=== PATIENT | female | born 1935 | race Caucasian/White ===

== ENCOUNTER 2016-06-05 19:46 | Inpatient (IN) | payer OTHER ==
[~2016-06-05] VITALS: Ht 157.5 cm; Wt 103.8 kg
[2016-06-05 19:49] VITALS: BP 145/85; PULSE 83; RESP 40; TEMP 100; O2SAT 99
[2016-06-05 19:52] VITALS: O2SAT 98
[2016-06-05] MEDS ORDERED: SODIUM CHLORIDE 0.9% FLUSH 5 ML FLUSH IVF PRN (20:00)
[2016-06-05 20:10] VITALS: BP 176/122; PULSE 102; RESP 38; TEMP 101; O2SAT 98
--- NOTE | 2016-06-05 20:14 | PD ---
HPI Chief Complaint: Respiratory Distress Time Seen by Provider: 19:57 Travel History International Travel<30 days: No Contact w/Intl Traveler<30days: No Traveled to known affect area: No History of Present Illness HPI Patient is an 81-year-old female with history of COPD, DM, CHF, HTN, HYPERLIPIDEMIA, who presents to emergency room from home with complaints of sob. Patient reports that for the past 2 days, she has been feeling increasingly sob. Reports that she has had increased productive cough with thick yellow sputum. Reports that she is here visiting from [place], reports that her sister is sick with similar symptoms. Reports that she has not been having fever/chills, reports "just a productive cough." Patient denies chest pain. Reports that she did get the flu vaccine this year. As per [facility], pt had pulse ox at room air around 84%, she is not on home O2. Patient was placed on CPAP by EMS. Patient was given IV Lasix 100mg by [facility] and was also given 1 neb treatment. Patient arrives to ER on CPAP, pt reports "I am feeling better already." PFSH Past Medical History Cardiovascular Problems: Yes (htn, chf ) Congestive Heart Failure: Yes COPD: Yes Diabetes: Yes Patient Takes Glucophage: No Diminished Hearing: No Hypertension: Yes Respiratory: Yes (copd) Tetanus Vaccination: Unknown Influenza Vaccination: Yes Social History Alcohol Use: No Tobacco Use: No Substance Use: No Allergies-Medications (Allergen,Severity, Reaction): Coded Allergies: No Known Allergies (Unverified , 06/05/16) Reported Meds & Prescriptions Reported Meds & Active Scripts Active Reported Clobetasol Topical (Clobetasol Propionate) 0.05% Cream 1 Applic TOPICAL BID Terazosin (Terazosin HCl) 2 Mg Cap 2 Mg PO HS Metformin (Metformin HCl) 500 Mg Tab 500 Mg PO DAILY With a meal Magnesium Oxide 500 Mg Tab 835 Mg PO DAILY Amlodipine (Amlodipine Besylate) 5 Mg Tab 5 Mg PO DAILY Januvia (Sitagliptin Phosphate) 100 Mg Tab 100 Mg PO DAILY Aspirin 81 (Aspirin) 81 Mg Tabdr 81 Mg PO DAILY Perindopril (Perindopril Erbumine) 8 Mg Tab 8 Mg PO DAILY Protonix (Pantoprazole Sodium) 40 Mg Tab 40 Mg PO DAILY Levothyroxine (Levothyroxine Sodium) 25 Mcg Tab 0.15 Mg PO DAILY Furosemide 40 Mg Tab 40 Mg PO DAILY Review of Systems General / Constitutional: No: Fever Eyes: No: Visual changes HENT: No: Headaches Cardiovascular: No: Chest Pain or Discomfort Respiratory: Positive: Cough, Shortness of Breath Gastrointestinal: No: Nausea, Vomiting, Diarrhea, Abdominal Pain Genitourinary: No: Dysuria Musculoskeletal: No: Pain Skin: No Rash Neurologic: No: Weakness Psychiatric: No: Depression Endocrine: No: Polydipsia Hematologic/Lymphatic: No: Easy Bruising Physical Exam Narrative GENERAL: moderate distress SKIN: Warm and dry. HEAD: Atraumatic. Normocephalic. EYES: Pupils equal and round. No scleral icterus. No injection or drainage. ENT: No nasal bleeding or discharge. Mucous membranes pink and moist. NECK: Trachea midline. No JVD. CARDIOVASCULAR: tachycardic. No murmur appreciated. RESPIRATORY: diffuse rales, pt with increased accessory muscle use. Breath sounds equal bilaterally. GASTROINTESTINAL: Abdomen soft, non-tender, nondistended. Hepatic and splenic margins not palpable. MUSCULOSKELETAL: No obvious deformities. No clubbing. No cyanosis. +3 pitting edema b/l. NEUROLOGICAL: Awake and alert. No obvious cranial nerve deficits. Motor grossly within normal limits. Normal speech. PSYCHIATRIC: Appropriate mood and affect; insight and judgment normal. Data Data Last Documented VS Vital Signs Date Time Temp Pulse Resp B/P Pulse Ox O2 Delivery O2 Flow Rate FiO2 06/05/16 21:05 100.5 99 28 167/79 96 BiPAP 40 Orders Complete Blood Count With Diff (06/05/16 19:58) Comprehensive Metabolic Panel (06/05/16 19:58) B-Type Natriuretic Peptide (06/05/16 19:58) Act Partial Throm Time (Ptt) (06/05/16 19:58) Prothrombin Time / Inr (Pt) (06/05/16 19:58) Magnesium (Mg) (06/05/16 19:58) Ckmb (Isoenzyme) Profile (06/05/16 19:58) Troponin I (06/05/16 19:58) Arterial Blood Gas (Abg) (06/05/16 19:58) Urinalysis - C+S If Indicated (06/05/16 19:58) Influenzae A/B Antigen (06/05/16 19:58) Blood Culture (06/05/16 19:58) Iv Access Insert/Monitor (06/05/16 19:58) Ecg Monitoring (06/05/16 19:58) Oximetry (06/05/16 19:58) Oxygen Administration (06/05/16 19:58) Chest, Single Ap (06/05/16 19:58) Urinary Catheter Insert/Apply (06/05/16 19:58) Sodium Chloride 0.9% Flush (Ns Flush) (06/05/16 20:00) Resp Bipap / Cpap Non Invas Vt (06/05/16 19:58) Lactic Acid Sepsis Protocol (06/05/16 19:58) Nitroglycerin 2% Oint (Nitroglycerin 2% (06/05/16 20:15) CKMB (06/05/16 20:00) CKMB% (06/05/16 20:00) Vancomycin Inj (Vancomycin Inj) (06/05/16 20:50) Piperacil-Tazo 4.5 Gm Premix (Zosyn 4.5 (06/05/16 20:50) Admit Order (Ed Use Only) (06/05/16 21:20) Electrocardiogram (06/05/16 19:54) Labs Laboratory Tests Test 06/05/16 20:00 White Blood Count 10.5 TH/MM3 Red Blood Count 4.04 MIL/MM3 Hemoglobin 11.3 GM/DL Hematocrit 34.0 % Mean Corpuscular Volume 84.2 FL Mean Corpuscular Hemoglobin 27.9 PG Mean Corpuscular Hemoglobin 33.1 % Concent Red Cell Distribution Width 15.3 % Platelet Count 177 TH/MM3 Mean Platelet Volume 9.9 FL Neutrophils (%) (Auto) 83.9 % Lymphocytes (%) (Auto) 8.0 % Monocytes (%) (Auto) 7.6 % Eosinophils (%) (Auto) 0.1 % Basophils (%) (Auto) 0.4 % Neutrophils # (Auto) 8.8 TH/MM3 Lymphocytes # (Auto) 0.8 TH/MM3 Monocytes # (Auto) 0.8 TH/MM3 Eosinophils # (Auto) 0.0 TH/MM3 Basophils # (Auto) 0.0 TH/MM3 CBC Comment DIFF FINAL Differential Comment Prothrombin Time 12.1 SEC Prothromb Time International 1.1 RATIO Ratio Activated Partial 29.2 SEC Thromboplast Time Urine Color YELLOW Urine Turbidity HAZY Urine pH 5.0 Urine Specific [place] 1.012 Urine Protein 30 mg/dL Urine Glucose (UA) NEG mg/dL Urine Ketones NEG mg/dL Urine Occult Blood TRACE Urine Nitrite NEG Urine Bilirubin NEG Urine Urobilinogen LESS THAN 2.0 MG/DL Urine Leukocyte Esterase NEG Urine RBC 1 /hpf Urine WBC 3 /hpf Urine Amorphous Sediment RARE Urine Bacteria OCC /hpf Urine Mucus FEW /lpf Microscopic Urinalysis Comment CULT NOT INDICATED Sodium Level 138 MEQ/L Potassium Level 4.2 MEQ/L Chloride Level 104 MEQ/L Carbon Dioxide Level 24.4 MEQ/L Anion Gap 10 MEQ/L Blood Urea Nitrogen 32 MG/DL Creatinine 1.46 MG/DL Estimat Glomerular Filtration 34 ML/MIN Rate Random Glucose 283 MG/DL Lactic Acid Level 2.6 mmol/L Calcium Level 7.8 MG/DL Magnesium Level 1.7 MG/DL Total Bilirubin 0.5 MG/DL Aspartate Amino Transf 19 U/L (AST/SGOT) Alanine Aminotransferase 30 U/L (ALT/SGPT) Alkaline Phosphatase 94 U/L Total Creatine Kinase 340 U/L Creatine Kinase MB 2.5 NG/ML Creatine Kinase MB % 0.7 % Troponin I 0.03 NG/ML B-Type Natriuretic Peptide 694 PG/ML Total Protein 7.5 GM/DL Albumin 3.4 GM/DL [facility] Medical Decision Making Medical Screen Exam Complete: Yes Emergency Medical Condition: Yes Interpretation(s) Vital Signs Date Time Temp Pulse Resp B/P Pulse Ox O2 Delivery O2 Flow Rate FiO2 06/05/16 19:49 100.0 83 40 145/85 99 Differential Diagnosis CHF Exacerbation, COPD Exacerbation, Pneumonia, Influenza, Arrythmia, Electrolyte abnormality Narrative Course Patient is a 81 year old female who presents to ER with c/o of sob. Pt has been having increased sob for the past 2 days, on clinical exam, pt with increased rales and rhonchi. Pt placed on bipap upon presentation to the emergency room. Patient has been given 100 mg of IV Lasix by EMS, will place 1 inch of nitro paste on patient's chest. Patient reports that she is feeling much better at this time, will monitor patient clinically. CBC, BMP, BNP, x-ray of chest, blood cultures and lactate ordered for further evaluation of symptoms. Patient reevaluated, patient reports that she is feeling much better on BiPAP Plan to admit pt to medicine service, lactic acid 2.6 - pt has been pancultures, zosyn and vanco has been given empirically, cannot exclude possibility of underlying pneumonia as she does complain of cough and congestion. cr 1.46 - no previous cr to compare BNP 694 - pt with CHF, patient has been given 100 mg of IV Lasix by EMS, patient stable on BiPAP at this time. Critical Care Narrative Aggregate critical care time was 30 minutes. Time to perform other separately billable procedures was not included in the critical care time. My time did not include minutes spent treating any other patients simultaneously or on activities that did not directly contribute to the patient's treatment. The services I provided to this patient were to treat and/or prevent clinically significant deterioration that could result in: , decompensation, deterioration I provided critical care services requiring my management, as noted below: Chart data review, documentation time, medication orders and management, vital sign assessments/reviewing monitor data, ordering and reviewing lab tests, ordering and interpreting/reviewing x-rays and diagnostic studies, care of the patient and discussion of the patient with the admitting physicians. Physician Communication Physician Communication Case reviewed with Dr Burgess who accepts pt to service Diagnosis Primary Impression: Acute exacerbation of CHF (congestive heart failure) Qualified Code: I50.9 - Acute on chronic congestive heart failure, unspecified congestive heart failure type Additional Impressions: BiPAP (biphasic positive airway pressure) dependence Renal insufficiency, mild Sepsis Hypoxia Admitting Information Admitting Physician Requests: AdmAlena Soria DO Jun 05, 2016 20:14
[2016-06-05] MEDS ORDERED: NITROGLYCERIN 2% OINT 1 GM PACKET TOP ONE (20:15)
[2016-06-05] MEDS ORDERED: FURO40TA PO (20:18)
[2016-06-05 20:19] LABS: AUTOMATED NEUTROPHIL # 8.8 TH/MM3 (1.8-7.7); BASOPHIL % 0.4 % (0.0-2.0); EOSINOPHIL % 0.1 % (0.0-4.0); HEMO FLAGS DIFF FINAL; LYMPHOCYTE # 0.8 TH/MM3 (1.0-4.8); MEAN CELL VOLUME 84.2 FL (80.0-100.0); MEAN CORPUSCULAR HEMOGLOBIN 27.9 PG (27.0-34.0); MEAN CORPUSCULAR HGB CONC 33.1 % (32.0-36.0); MONO % 7.6 % (0.0-8.0); NEUT % 83.9 % (16.0-70.0); PLATELET COUNT 177 TH/MM3 (150-450); RED BLOOD COUNT 4.04 MIL/MM3 (4.00-5.30); RED CELL DISTRIBUTION WIDTH 15.3 % (11.6-17.2); WHITE BLOOD COUNT 10.5 TH/MM3 (4.0-11.0)
[2016-06-05] MEDS ORDERED: LEVO25TA4 PO (20:22)
[2016-06-05] MEDS ORDERED: PROT40TA PO (20:23)
[2016-06-05] MEDS ORDERED: ASPI-110 PO (20:25)
[2016-06-05] MEDS ORDERED: PERI8TAB PO (20:25)
[2016-06-05] MEDS ORDERED: SITA1TAB2 PO (20:26)
[2016-06-05] MEDS ORDERED: AMLO5TAB2 PO (20:26)
--- NOTE | 2016-06-05 20:26 | RADRPT ---
EXAM DATE/TIME: 06/05/2016 20:17 [place] COMPARISON: No previous studies available for comparison. INDICATIONS : Shortness of breath. MEDICAL HISTORY : Congestive heart failure. SURGICAL HISTORY : None. ENCOUNTER: Initial ACUITY: 2 days PAIN SCORE: 0/10 LOCATION: chest FINDINGS: There is atherosclerotic cardiovascular disease with left ventricular cardiomegaly and prominent vasc ularity with perivascular edema edema indicating CHF without consolidative infiltrates. CONCLUSION: CHF Juvenal Roberts MD on June 05, 2016 at 20:24 Board Certified Radiologist. This report was verified electronically.
[2016-06-05] MEDS ORDERED: METF500T PO (20:27)
[2016-06-05] MEDS ORDERED: MAGN500T2 PO (20:27)
[2016-06-05] MEDS ORDERED: CLOB0.055 TOPICAL (20:28)
[2016-06-05] MEDS ORDERED: TERA2CAP3 PO (20:28)
[2016-06-05 20:29] LABS: APTT (PATIENT) 29.2 SEC (24.3-30.1); INTERNATIONAL NORMALIZED RATIO 1.1 RATIO; PROTHROMBIN TIME - PATIENT 12.1 SEC (9.8-11.6)
[2016-06-05 20:31] VITALS: BP 194/74
[2016-06-05 20:42] LABS: BACTERIA, URINE OCC /hpf; BLOOD, URINE TRACE (NEG); COMMENT (UR) CULT NOT INDICATED; CULTURE IF INDICATED CULT NOT INDICATED; GLUCOSE,URINE NEG (NEG); KETONE, URINE NEG (NEG); MUCUS URINE FEW /lpf (OCC); NITRITE,URINE NEG (NEG); URINE COLOR YELLOW (YELLW/STRAW)
[2016-06-05 20:45] LABS: ANION GAP 10 MEQ/L (5-15); AST (GOT) 19 U/L (15-37); BICARBONATE 24.4 MEQ/L (21.0-32.0); BLOOD UREA NITROGEN 32 MG/DL (7-18); CHLORIDE 104 MEQ/L (98-107); GLOMERULAR FILTRATION RATE 34 ML/MIN (>89); MAGNESIUM 1.7 MG/DL (1.5-2.5); POTASSIUM 4.2 MEQ/L (3.5-5.1); SODIUM (NA) 138 MEQ/L (136-145)
[2016-06-05 20:49] LABS: ALKALINE PHOSPHATASE 94 U/L (45-117); ALT (GPT) 30 U/L (10-53); CREATINE KINASE 340 U/L (26-192); TOTAL BILIRUBIN ADULT 0.5 MG/DL (0.2-1.0)
[2016-06-05] MEDS ORDERED: VANCOMYCIN INJ 1,000 MG in SODIUM CHLOR 0.9% 250 ML INJ 250 ML IV STA (20:50)
[2016-06-05] MEDS ORDERED: PIPERACIL-TAZO 4.5 GM PREMIX 100 ML IV STA (20:50)
[2016-06-05 21:02] LABS: CKMB 2.5 NG/ML (0.5-3.6)
[2016-06-05 21:05] VITALS: BP 167/79; PULSE 99; RESP 28; TEMP 100.5; O2SAT 96
[2016-06-05] MEDS ORDERED: SODIUM CHLOR 0.9% 1000 ML INJ 1,000 ML IV SCH (21:26)
[2016-06-05] MEDS ORDERED: Vancomycin Consult Pharmacy 1 EA OTHER SCH (21:30)
[2016-06-05] MEDS ORDERED: RESP: ALBUTEROL 2.5 MG/IPRATROPIUM 0.5 MG NEB (PRN) NEB (21:30)
[2016-06-05] MEDS ORDERED: ACETAMINOPHEN 325 MG TAB PO PRN (21:30)
[2016-06-05] MEDS ORDERED: ACETAMINOPHEN/HYDROcodone 325 MG/5 MG TAB PO PRN (21:30)
[2016-06-05] MEDS ORDERED: DEXTROSE 50% IN WATER 50 ML VIAL(D50) IV PUSH PRN (21:30)
[2016-06-05] MEDS ORDERED: MORPHINE SULFATE 4 MG/ML INJ IV PRN (21:30)
[2016-06-05] MEDS ORDERED: ONDANSETRON HCL 4 MG/2 ML VIAL IVP PRN (21:30)
[2016-06-05] MEDS ORDERED: BISACODYL 10 MG SUPP PR PRN (21:30)
[2016-06-05] MEDS ORDERED: GLUCAGON 1 MG/ML VIAL OTHER PRN (21:30)
[2016-06-05] MEDS ORDERED: SODIUM CHLORIDE 0.9% FLUSH 5 ML FLUSH FLUSH PRN (21:30)
--- NOTE | 2016-06-05 21:34 | HHI.HP ---
[facility] Service [facility] Primary Care Physician No Primary Care Physician Admission Diagnosis CHF Exacerbation - BIPAP Dependent with Sepsis Diagnoses: (1) Sepsis Diagnosis: Principal (2) Acute respiratory failure Diagnosis: Principal (3) Hypoxia Diagnosis: Principal (4) CHF (congestive heart failure) Diagnosis: Principal (5) Renal insufficiency Diagnosis: Principal (6) DM (diabetes mellitus) Diagnosis: Principal Travel History International Travel<30 Days: No Contact w/Intl Traveler <30 Da: No Traveled to Known Affected Are: No History of Present Illness This is an 81-year-old female with a PMH of HTN, COPD, CHF (unknown EF), Hyperlipidemia and DM was brought to the ER by EMS secondary to SOB x2 days. Reports associated productive cough w/ yellow-colored sputum and sick contact- sister has similar symptoms. Denies fever, chills or chest pain. Upon EMS arrival, pt noted to have O2 sat 75% on RA and placed on CPAP, s/p Lasix 100mg IV en route and given DuoNeb w/ some improvement. On arrival, BP 145/85, HR 83 , RR 40, O2 sat 99% on BiPAP w/ 50% FiO2, Temp 101.0. WBC normal however elevated neutrophil count. Creatinine 1.46, no previous labs for comparison. Bacid 2.6. CPK 340, BNP 694. UA negative. CXR with CHF. S/p Blood Cultures, Vanc/Zosyn in ER. Pt remains on BIPAP, now weaned to 40% FIO2. Review of Systems Other ROS: 14 point review of systems otherwise negative. Past Family Social History Past Medical History PMH: HTN, COPD, CHF (unknown EF), Hyperlipidemia and DM Past Surgical History PAST SURGICAL HISTORY: None Allergies: Coded Allergies: No Known Allergies (Unverified , 06/05/16) Family History PAST FAMILY HISTORY: Reviewed, positive for DM. Social History PAST SOCIAL HISTORY: Negative for alcohol, tobacco or drugs. Patient visiting from [place]. Physical Exam Vital Signs Vital Signs Date Time Temp Pulse Resp B/P Pulse Ox O2 Delivery O2 Flow Rate FiO2 06/05/16 21:05 100.5 99 28 167/79 96 BiPAP 40 06/05/16 20:31 194/74 06/05/16 20:10 101.0 102 38 176/122 98 BiPAP 50 06/05/16 20:10 98 BiPAP 50 06/05/16 20:10 98 BiPAP 50 06/05/16 19:49 100.0 83 40 145/85 99 Physical Exam PE: GENERAL: Elderly white female in no acute distress. Currently on BiPAP. HEENT: PERRLA, EOMI. No scleral icterus or conjunctival pallor. No lid lag or facial droop. CARDIOVASCULAR: Regular rate and rhythm. No obvious murmurs to auscultation. No chest tenderness to palpation. RESPIRATORY: No obvious rhonchi or wheezing. Clear to auscultation. Breath sounds equal bilaterally, mildly decreased at bases. GASTROINTESTINAL: Abdomen soft, non-tender, nondistended. BS normal. MUSCULOSKELETAL: Extremities without clubbing, cyanosis, or edema. No obvious deformities. NEUROLOGICAL: Awake, alert and oriented x4. No focal neurologic deficits. Moving both upper and lower extremities spontaneously. Laboratory Laboratory Tests Test 06/05/16 20:00 White Blood Count 10.5 Red Blood Count 4.04 Hemoglobin 11.3 Hematocrit 34.0 Mean Corpuscular Volume 84.2 Mean Corpuscular Hemoglobin 27.9 Mean Corpuscular Hemoglobin 33.1 Concent Red Cell Distribution Width 15.3 Platelet Count 177 Mean Platelet Volume 9.9 Neutrophils (%) (Auto) 83.9 Lymphocytes (%) (Auto) 8.0 Monocytes (%) (Auto) 7.6 Eosinophils (%) (Auto) 0.1 Basophils (%) (Auto) 0.4 Neutrophils # (Auto) 8.8 Lymphocytes # (Auto) 0.8 Monocytes # (Auto) 0.8 Eosinophils # (Auto) 0.0 Basophils # (Auto) 0.0 CBC Comment DIFF FINAL Differential Comment Prothrombin Time 12.1 Prothromb Time International 1.1 Ratio Activated Partial 29.2 Thromboplast Time Urine Color YELLOW Urine Turbidity HAZY Urine pH 5.0 Urine Specific [place] 1.012 Urine Protein 30 Urine Glucose (UA) NEG Urine Ketones NEG Urine Occult Blood TRACE Urine Nitrite NEG Urine Bilirubin NEG Urine Urobilinogen LESS THAN 2.0 Urine Leukocyte Esterase NEG Urine RBC 1 Urine WBC 3 Urine Amorphous Sediment RARE Urine Bacteria OCC Urine Mucus FEW Microscopic Urinalysis Comment CULT NOT INDICATED Sodium Level 138 Potassium Level 4.2 Chloride Level 104 Carbon Dioxide Level 24.4 Anion Gap 10 Blood Urea Nitrogen 32 Creatinine 1.46 Estimat Glomerular Filtration 34 Rate Random Glucose 283 Lactic Acid Level 2.6 Calcium Level 7.8 Magnesium Level 1.7 Total Bilirubin 0.5 Aspartate Amino Transf 19 (AST/SGOT) Alanine Aminotransferase 30 (ALT/SGPT) Alkaline Phosphatase 94 Total Creatine Kinase 340 Creatine Kinase MB 2.5 Creatine Kinase MB % 0.7 Troponin I 0.03 B-Type Natriuretic Peptide 694 Total Protein 7.5 Albumin 3.4 Date/Time Procedure Status Source Growth 06/05/16 20:05 Aerobic Blood Culture Received Blood Peripheral Pending 06/05/16 20:05 Anaerobic Blood Culture Received Blood Peripheral Pending Result Diagram: 06/05/16199906/05/161999 Assessment and Plan Problem List: (1) Sepsis ICD Code: A41.9 Status: Acute (2) Acute respiratory failure ICD Code: J96.00 Status: Acute (3) Hypoxia ICD Code: R09.02 Status: Acute (4) CHF (congestive heart failure) ICD Code: I50.9 Status: Acute (5) Renal insufficiency ICD Code: N28.9 Status: Acute (6) DM (diabetes mellitus) ICD Code: E11.9 Status: Acute Assessment and Plan A/P: 1. Sepsis: Temp 101.0, WBC normal however elevated neutrophil count, Lactic Acid 2.6, +sick contacts. Source-presumed PNA. CXR w/ CHF, images reviewed by me. S/p Blood Cultures, Vanc/Zosyn in ER. Follow up cultures, continue IV Abx , IVF-caution w/ CHF. Check repeat Lactic Acid in am. 2. Acute Respiratory Failure: requiring BIPAP. Likely multifactorial-due to PNA, COPD and CHF. O2 sat 75% on RA, currently on BIPAP w/ FIO2 weaned to 40%, O2 sat 96%. Wean off BIPAP as tolerated. DuoNeb q4h and q2h prn. 3. CHF: EF unknown. Pt visiting from [place], no previous records. CXR w/ CHF , BNP 694. S/p Lasix 100mg IV by EMS en route to ER. Resume home diuretics, caution w/ renal function. 4. Renal Insufficiency: Creatinine 1.46, no previous labs for comparison. U/ a negative. Gentle IVF-caution w/ CHF, repeat labs in am. 5. DM: Sliding scale w/ Accu-Cheks. Hold Metformin in light of sepsis and renal insufficiency. 6. DVT Prophylaxis: SCD/Teds. 7. Social work for d/c planning as needed. 8. Case discussed w/ ER physician at length. Physician Certification 2 Midnight Certification Type: Admission for Inpatient Services Order for Inpatient Services The services are ordered in accordance with Medicare regulations or non- Medicare payer requirements, as applicable. In the case of services not specified as inpatient-only, they are appropriately provided as inpatient services in accordance with the 2-midnight benchmark. Estimated LOS (days): 2 days is the estimated time the patient will need to remain in the hospital, assuming treatment plan goals are met and no additional complications. Post-Hospital Plan: Not yet determined Problem Qualifiers (1) Acute respiratory failure: Qualified Code: J96.01 - Acute respiratory failure with hypoxia Heidi Burgess MD Jun 05, 2016 21:34
[2016-06-05 22:12] LABS: LACTIC ACID GHOST NOT REPORTABLE
[2016-06-05 22:32] LABS: BLOOD GAS BASE EXCESS -3.5 mmol/L (-2-2); BLOOD GAS CARBOXYHEMOGLOBIN 2.2 % (0-4); BLOOD GAS HCO3 22 mmol/L (22-26); BLOOD GAS METHEMOGLOBIN 1.9 % (0-2); BLOOD GAS O2 HGB SATURATION 94 % (90-100); BLOOD GAS OXYGEN CONTENT 14.6 Vol % (12.0-20.0); BLOOD GAS PCO2 47 mmHg (38-42); BLOOD GAS PO2 113 mmHG (61-120); BLOOD GAS TOTAL HGB 10.9 G/DL (12.0-16.0); CRITICAL VALUE NO; DRAW SITE LT RADIAL; FIO2 50 %; OXYGEN DEVICE BIPAP; TEMP CORR TO 98.6; VENT SETTINGS IPAP=12 EPAP=6
[2016-06-05 22:33] LABS: NUMBER OF ARTERIAL PUNCTURES 1; STAT YES; ULNAR PULSE PRESENT
[2016-06-05 23:25] VITALS: BP 127/78; PULSE 67; RESP 22; TEMP 99.5; O2SAT 98
[2016-06-06] VITALS (32 sets, daily range): BP systolic 125–172; BP diastolic 66–81; PULSE 61–94; RESP 24; TEMP 97.2–98.2; O2SAT 92–99
[2016-06-06 05:29] LABS: AUTOMATED NEUTROPHIL # 6.9 TH/MM3 (1.8-7.7); BASOPHIL % 0.5 % (0.0-2.0); EOSINOPHIL % 0.1 % (0.0-4.0); HEMATOCRIT 29.3 % (35.0-46.0); HEMO FLAGS DIFF FINAL; LYMPH % 12.4 % (9.0-44.0); LYMPHOCYTE # 1.1 TH/MM3 (1.0-4.8); MEAN CELL VOLUME 83.6 FL (80.0-100.0); MEAN CORPUSCULAR HEMOGLOBIN 27.6 PG (27.0-34.0); MONO % 10.1 % (0.0-8.0); NEUT % 76.9 % (16.0-70.0); PLATELET COUNT 164 TH/MM3 (150-450); RED BLOOD COUNT 3.51 MIL/MM3 (4.00-5.30); RED CELL DISTRIBUTION WIDTH 15.2 % (11.6-17.2)
[2016-06-06 05:52] LABS: ANION GAP 8 MEQ/L (5-15); AST (GOT) 21 U/L (15-37); BICARBONATE 26.5 MEQ/L (21.0-32.0); BLOOD UREA NITROGEN 38 MG/DL (7-18); CHLORIDE 107 MEQ/L (98-107); GLOMERULAR FILTRATION RATE 35 ML/MIN (>89); POTASSIUM 3.8 MEQ/L (3.5-5.1); SODIUM (NA) 141 MEQ/L (136-145)
[2016-06-06] MEDS: INSULIN ASPART SUPPLEMENTAL SCALE SQ SCH ×4 (05:56→21:04)
[2016-06-06 06:09] LABS: TOTAL BILIRUBIN ADULT 0.4 MG/DL (0.2-1.0)
[2016-06-06 07:09] LABS: ALKALINE PHOSPHATASE 77 U/L (45-117); ALT (GPT) 28 U/L (10-53)
[2016-06-06] MEDS: RESP: ALBUTEROL 2.5 MG/IPRATROPIUM 0.5 MG NEB (SCH) NEB ×4 (07:47→19:00)
[2016-06-06] MEDS ORDERED: FUROSEMIDE 40 MG TAB PO SCH (09:00)
[2016-06-06] MEDS: CEFEPIME INJ 1,000 MG in SODIUM CHLORIDE 0.9% INJ 100 ML IV SCH (09:00)
[2016-06-06] MEDS: SODIUM CHLORIDE 0.9% FLUSH 5 ML FLUSH FLUSH SCH ×2 (09:34→20:44)
[2016-06-06] MEDS: BUDESONIDE-FORMOTEROL 160/4.5 MCG INHALER INH SCH ×2 (09:34→20:44)
[2016-06-06] MEDS: PANTOPRAZOLE SOD 40 MG DELAYED RELEASE TAB PO SCH (09:36)
[2016-06-06] MEDS: ASPIRIN EC 81 MG TABEC PO SCH (09:36)
[2016-06-06] MEDS: guaiFENesin E.R. 600 MG TAB PO SCH ×2 (09:36→20:44)
--- NOTE | 2016-06-06 10:16 | HHI.FPPN ---
Subjective Remarks No acute events overnight. Febrile to 100.5 overnight. Patient states that she is feeling better, denies shortness of breath or chest pain. Satting 98% on 3 L nasal cannula. (Alena Cain MD R3) Objective Vitals Vital Signs Date Time Temp Pulse Resp B/P Pulse Ox O2 Delivery O2 Flow Rate FiO2 06/06/16 07:55 97 Nasal Cannula 3.00 06/06/16 07:00 98.2 66 24 132/66 95 06/06/16 06:00 72 06/06/16 05:00 64 06/06/16 04:05 99 40 06/06/16 04:00 62 06/06/16 03:30 61 125/66 98 06/06/16 03:00 61 06/06/16 02:00 61 06/06/16 01:00 77 06/06/16 00:50 98 50 06/06/16 00:48 95 6.00 40 06/06/16 00:40 98 35 06/05/16 23:25 99.5 67 22 127/78 98 BiPAP 40 06/05/16 21:05 100.5 99 28 167/79 96 BiPAP 40 06/05/16 20:31 194/74 06/05/16 20:10 101.0 102 38 176/122 98 BiPAP 50 06/05/16 20:10 98 BiPAP 50 06/05/16 20:10 98 BiPAP 50 06/05/16 19:52 98 50 06/05/16 19:49 100.0 83 40 145/85 99 I/O 06/05/16 06/05/16 06/05/16 06/06/16 06/06/16 06/06/16 07:00 15:00 23:00 07:00 15:00 23:00 Intake Total 240 ml Output Total 750 ml Balance -510 ml Intake Oral 240 ml Output Urine Total 750 ml # Voids 0 (Alena Cain MD R3) Result Diagram: 06/06/1651106/06/1612 Objective Remarks Gen.: No acute distress Head: Normocephalic. Atraumatic. EENT: Pupils equal round and reactive to light. Nose without drainage. Airway intact. Throat without injection. Cardiovascular: Regular rate and rhythm. No murmurs, rubs or gallops. Respiratory: Bilateral wheezes throughout. Positive rhonchi. Abdomen: Soft, nontender, nondistended. No peritoneal signs. Musculoskeletal: No gross deformities. Trace edema Skin: No obvious rashes or erythema. Neuro: Sensory and motor grossly intact. Cranial nerves II through XII grossly intact. Psych: Appropriate mood and affect (Alena Cain MD R3) A/P Assessment and Plan 81-year-old female with a PMH of HTN, COPD, CHF (unknown EF), Hyperlipidemia and DM was brought to the ER by EMS secondary to SOB x2 days. Patient was hypoxic to the mid 70s and required BiPAP on arrival to the emergency department. 1. Acute respiratory failure: Patient now stable on 3 L nasal cannula, weaned off BiPAP. Likely secondary to COPD and CHF. On exam patient with wheezes throughout, continue duo nebs. 2. Sepsis: On admission patient febrile with left shift. Presumed pneumonia, currently on cefepime and vancomycin. Lactic acid has trended down from 2.6 to 1.1. Continue antibiotics. 3. CHF: No previous records as patient is from [place], unknown EF. Continue home Lasix. 4. Acute kidney injury: Gentle hydration. Avoid nephrotoxic agents 5. COPD: Continue Symbicort, DuoNeb nebs as above. Patient does not have oxygen requirement at home. 6. Diabetes mellitus: Low-dose sliding scale insulin FEN: Fluids: Normal saline at 70 cc/hour Electrolytes: Replete when necessary Diet: Heart healthy (Alena Cain MD R3) Attending Attestation Patient seen and examined. Case reviewed and discussed with the resident. Agree with plan of care as discussed with me and documented in the resident note . Add Prednisone for COPD exacerbation. Change Lasix to IV. Will check echo. ( Donya Cat MD) Problem List: (1) BiPAP (biphasic positive airway pressure) dependence Status: Acute (2) Acute exacerbation of CHF (congestive heart failure) Status: Acute (3) Renal insufficiency, mild Status: Acute (4) Sepsis Status: Acute (5) CHF (congestive heart failure) Status: Chronic (6) DM (diabetes mellitus) Status: Chronic (7) Acute respiratory failure Status: Acute (Alena Cain MD R3) Problem Qualifiers (1) Acute exacerbation of CHF (congestive heart failure): Qualified Code: I50.9 - Acute on chronic congestive heart failure, unspecified congestive heart failure type (2) Acute respiratory failure: Qualified Code: J96.01 - Acute respiratory failure with hypoxia Alena Cain MD R3 Jun 06, 2016 10:16 Donya Cat MD Jun 06, 2016 12:02
[2016-06-06] MEDS: predniSONE 20 MG TAB PO SCH (12:50)
[2016-06-06] MEDS: VANCOMYCIN INJ 1,500 MG in SODIUM CHLORID 0.9% 500 ML INJ 500 ML IV SCH (13:55)
--- NOTE | 2016-06-06 16:40 | EKG ---
Date Performed: 06/05/2016 Time Performed: 19:54:23 PTAGE: 81 years EKG: ATRIAL FIBRILLATION WITH CONTROLLED VENTRICULAR RESPONSE WITH ABERRANT CONDUCTION OR VENTRI CULAR PREMATURE COMPLEXES INTRAVENTRICULAR CONDUCTION DELAY ABNORMAL ECG PREVIOUS TRACING : 06/05/2016 19.52 DOCTOR: Guerrero Guerrero Interpretating Date/Time 06/06/2016 16:40:01
[2016-06-06] MEDS ORDERED: VANCOMYCIN 1,000 MG/NS 250 ML IV SCH ×2 (20:00)
[2016-06-06] MEDS: amLODIPine BESYLATE 5 MG TAB PO SCH (20:44)
[2016-06-06] MEDS: FUROSEMIDE 40 MG/4 ML VIAL IV PUSH SCH (20:44)
[2016-06-07] VITALS (28 sets, daily range): BP systolic 146–174; BP diastolic 74–89; PULSE 58–97; RESP 20–32; TEMP 97.3–98.2; O2SAT 91–99
[2016-06-07] MEDS ORDERED: cloNIDine HCL 0.1 MG TAB PO ONE (03:30)
[2016-06-07] MEDS: INSULIN ASPART SUPPLEMENTAL SCALE SQ SCH ×4 (06:12→21:05)
[2016-06-07 06:25] LABS: AUTOMATED NEUTROPHIL # 7.4 TH/MM3 (1.8-7.7); BASOPHIL % 0.2 % (0.0-2.0); EOSINOPHIL % 0.1 % (0.0-4.0); HEMATOCRIT 28.9 % (35.0-46.0); HEMO FLAGS DIFF FINAL; LYMPH % 8.4 % (9.0-44.0); LYMPHOCYTE # 0.8 TH/MM3 (1.0-4.8); MEAN CELL VOLUME 83.2 FL (80.0-100.0); MEAN CORPUSCULAR HEMOGLOBIN 27.5 PG (27.0-34.0); MEAN CORPUSCULAR HGB CONC 33.1 % (32.0-36.0); MONO % 9.5 % (0.0-8.0); NEUT % 81.8 % (16.0-70.0); PLATELET COUNT 155 TH/MM3 (150-450); RED BLOOD COUNT 3.48 MIL/MM3 (4.00-5.30); RED CELL DISTRIBUTION WIDTH 14.9 % (11.6-17.2)
[2016-06-07 06:49] LABS: BICARBONATE 27.8 MEQ/L (21.0-32.0); POTASSIUM 4.3 MEQ/L (3.5-5.1)
[2016-06-07] MEDS: RESP: ALBUTEROL 2.5 MG/IPRATROPIUM 0.5 MG NEB (SCH) NEB ×4 (07:39→19:28)
--- NOTE | 2016-06-07 08:28 | HHI.PR ---
Subjective Remarks Follow-up for acute respiratory failure. Patient is currently undergoing Echo study. Denies any chest pain, SOB, fever, chills. Inquires about going home tomorrow. Objective Vitals Vital Signs Date Time Temp Pulse Resp B/P Pulse Ox O2 Delivery O2 Flow Rate FiO2 06/07/16 07:39 94 Nasal Cannula 2.00 06/07/16 06:00 59 06/07/16 05:00 62 06/07/16 04:00 62 06/07/16 03:20 97.4 58 174/78 97 171/89 06/07/16 03:00 62 06/07/16 02:00 60 06/07/16 01:47 99 BiPAP 40 06/07/16 01:47 99 40 06/07/16 01:00 61 06/07/16 00:00 61 06/06/16 23:00 90 06/06/16 23:00 97.7 73 142/77 98 06/06/16 22:00 82 06/06/16 21:37 98 40 06/06/16 21:00 94 06/06/16 20:00 86 06/06/16 19:00 97.2 90 169/81 92 06/06/16 19:00 89 06/06/16 18:00 94 06/06/16 17:00 91 06/06/16 16:00 90 06/06/16 15:08 95 Nasal Cannula 3.00 06/06/16 15:00 98.0 80 24 171/78 93 06/06/16 15:00 84 06/06/16 14:00 80 06/06/16 13:00 80 06/06/16 12:00 78 06/06/16 11:00 97.9 76 24 172/67 97 06/06/16 11:00 75 06/06/16 10:00 77 06/06/16 09:00 73 I/O 06/06/16 06/06/16 06/06/16 06/07/16 06/07/16 06/07/16 07:00 15:00 23:00 07:00 15:00 23:00 Intake Total 240 ml 1200 ml 240 ml Output Total 750 ml 750 ml 700 ml Balance -510 ml 450 ml -460 ml Intake Oral 240 ml 1200 ml 240 ml Output Urine Total 750 ml 750 ml 700 ml # Bowel Movements 1 Result Diagram: 06/07/16 0538 06/07/16 0538 Imaging Last Impressions Chest X-Ray 06/05/161957 Signed Impressions: Service Date/Time: Sunday, June 05, 2016 20:17 - CONCLUSION: CHF Juvenal Roberts MD Objective Remarks GENERAL: AOX3, NAD. SKIN: Warm and dry. HEAD: Normocephalic. EYES: No scleral icterus. No injection or drainage. NECK: Supple, trachea midline. No JVD or lymphadenopathy. CARDIOVASCULAR: Regular rate and rhythm without murmurs, gallops, or rubs. RESPIRATORY: Moderate air entry. No wheezing, crackles appreciated. GASTROINTESTINAL: Abdomen soft, non-tender, nondistended. MUSCULOSKELETAL: No cyanosis. Trace edema. BACK: Nontender without obvious deformity. No CVA tenderness. Procedures Echo 06/07/2016 - Left ventricle: The cavity size was normal. Wall thickness was increased in a pattern of mild LVH. Systolic function was normal. The estimated ejection fraction was in the range of 50% to 55%. - Aortic valve: Valve area: 1.48cm^2(VTI). Valve area: 1.52cm^2 (Vmax). - Mitral valve: Moderately calcified annulus. Mild regurgitation. - Left atrium: The atrium was mildly dilated. - Tricuspid valve: Mild regurgitation. - Pulmonary arteries: PA peak pressure: 71mm Hg (S). A/P Problem List: (1) Sepsis ICD Code: A41.9 Status: Acute (2) Acute respiratory failure ICD Code: J96.00 Status: Acute (3) Hypoxia ICD Code: R09.02 Status: Acute (4) CHF (congestive heart failure) ICD Code: I50.9 Status: Chronic (5) Renal insufficiency ICD Code: N28.9 Status: Acute (6) DM (diabetes mellitus) ICD Code: E11.9 Status: Chronic Assessment and Plan Ms. Gutierrez is a pleasant 81 year old female with a history of HTN, COPD, CHF ( unknown EF), Hyperlipidemia and DM was brought to the ER by EMS secondary to SOB for 2 days prior to this admission on 06/05/2016. Upon EMS arrival, pt noted to have O2 sat 75% on RA and placed on CPAP, s/p Lasix 100mg IV en route and given DuoNeb w/ some improvement. On arrival, BP 145/85, HR 83, RR 40, O2 sat 99% on BiPAP w/ 50% FiO2, Temp 101.0. WBC normal however elevated neutrophil count. Vanc/Zosyn given in the ED. - Acute respiratory failure - Patient now stable on 3 L nasal cannula, weaned off BiPAP. - Likely secondary to COPD and CHF. - Sepsis: On admission patient febrile with left shift. - Presumed pneumonia, currently on cefepime and vancomycin. Patient has been afebrile. We will switch to Levaquin - Lactic acid has trended down from 2.6 to 1.1. Continue antibiotics. - CHF: No previous records as patient is from [place]. Continue home Lasix. - EF 50-55%. -Acute kidney injury: Gentle hydration. Avoid nephrotoxic agents -COPD: Continue Symbicort, DuoNeb nebs as above. Patient does not have oxygen requirement at home. -Diabetes mellitus: Low-dose sliding scale insulin Full code. Heparin SQ. Problem Qualifiers (1) Acute respiratory failure: Qualified Code: J96.01 - Acute respiratory failure with hypoxia Homer Helms DO Jun 07, 2016 08:28
[2016-06-07] MEDS: amLODIPine BESYLATE 5 MG TAB PO SCH (08:34)
[2016-06-07] MEDS: FUROSEMIDE 40 MG/4 ML VIAL IV PUSH SCH ×2 (08:34→17:22)
[2016-06-07] MEDS: predniSONE 20 MG TAB PO SCH (08:34)
[2016-06-07] MEDS: guaiFENesin E.R. 600 MG TAB PO SCH ×2 (08:34→21:04)
[2016-06-07] MEDS: PANTOPRAZOLE SOD 40 MG DELAYED RELEASE TAB PO SCH (08:34)
[2016-06-07] MEDS: ASPIRIN EC 81 MG TABEC PO SCH (08:34)
[2016-06-07] MEDS: BUDESONIDE-FORMOTEROL 160/4.5 MCG INHALER INH SCH ×2 (08:35→21:04)
[2016-06-07] MEDS: CEFEPIME INJ 1,000 MG in SODIUM CHLORIDE 0.9% INJ 100 ML IV SCH (08:35)
[2016-06-07] MEDS: SODIUM CHLORIDE 0.9% FLUSH 5 ML FLUSH FLUSH SCH ×2 (08:36→21:04)
[2016-06-07] MEDS ORDERED: PERINDOPRIL PO SCH (09:00)
[2016-06-07] MEDS: hydrALAZINE HCL 20 MG/ML VIAL IV PUSH PRN (12:37)
[2016-06-07] MEDS: VANCOMYCIN INJ 1,500 MG in SODIUM CHLORID 0.9% 500 ML INJ 500 ML IV SCH (12:40)
--- NOTE | 2016-06-07 16:14 | EC ---
Study Study Date:06/07/2016 STUDY CONCLUSIONS SUMMARY - Left ventricle: The cavity size was normal. Wall thickness was increased in a pattern of mild LVH. Systolic function was normal. The estimated ejection fraction was in the range of 50% to 55%. - Aortic valve: Valve area: 1.48cm^2(VTI). Valve area: 1.52cm^2 (Vmax). - Mitral valve: Moderately calcified annulus. Mild regurgitation. - Left atrium: The atrium was mildly dilated. - Tricuspid valve: Mild regurgitation. - Pulmonary arteries: PA peak pressure: 71mm Hg (S). If LV function is below 40, please consider prescribing an ACEI or ARB or document rationale for non-use. PROCEDURE DATA STUDY STATUS: Elective. Procedure: Transthoracic echocardiography. Image quality was suboptimal. Scanning was performed from the parasternal, apical, and subcostal acoustic windows. Study completion: The patient tolerated the procedure well. Transthoracic echocardiography. M-mode, complete 2D, complete spectral Doppler, and color Doppler. Patient status: Inpatient. CARDIAC ANATOMY LEFT VENTRICLE: The cavity size was normal. Wall thickness was increased in a pattern of mild LVH. Systolic function was normal. The estimated ejection fraction was in the range of 50% to 55%. Images were inadequate for LV wall motion assessment. AORTIC VALVE: Trileaflet; mildly thickened, mildly calcified leaflets. Doppler: Transvalvular velocity was within the normal range. There was no stenosis. No regurgitation. Valve area: 1.48cm^2(VTI). Valve area: 1.52cm^2 (Vmax). Mean gradient: 8mm Hg (S). Peak gradient: 13mm Hg (S). AORTA: Aortic root: The aortic root was normal in size. MITRAL VALVE: Moderately calcified annulus. Doppler: Transvalvular velocity was within the normal range. There was no evidence for stenosis. Mild regurgitation. LEFT ATRIUM: The atrium was mildly dilated. RIGHT VENTRICLE: The cavity size was normal. Wall thickness was normal. PULMONIC VALVE: Doppler: Transvalvular velocity was within the normal range. There was no evidence for stenosis. No regurgitation. TRICUSPID VALVE: Structurally normal valve. Doppler: Transvalvular velocity was within the normal range. Mild regurgitation. PULMONARY ARTERY: The main pulmonary artery was normal-sized. Systolic pressure was within the normal range. RIGHT ATRIUM: The atrium was normal in size. PERICARDIUM: There was no pericardial effusion. SYSTEMIC VEINS: Inferior vena cava: Not visualized. BASIC MEASUREMENTS ADULT Normal Left ventricle LV internal dimension, ED, chordal level, 48.1 mm 43-52 PLAX LV internal dimension, ES, chordal level, 37.7 mm 23-38 PLAX Fractional shortening, chordal level, PLAX *22 % >29 LV posterior wall thickness, ED 13.2 mm IVS/LVPW ratio, ED *1.49 <1.3 Ventricular septum Septal thickness, ED 19.7 mm Aortic valve Leaflet separation 24 mm 15-26 Right ventricle RV internal dimension, ED, PLAX 29 mm 19-38 BASIC MEASUREMENTS ADULT Normal Aortic valve Leaflet separation 24 mm 15-26 Aorta Root diameter, ED 35 mm 20-37 Left atrium Anterior-posterior dimension, ES *47 mm 19-40 LA/aortic root ratio 1.34 DOPPLER MEASUREMENTS ADULT Normal Main pulmonary artery Pressure, S *71 mm Hg =30 Aortic valve Peak velocity, S 181 cm/s Mean velocity, S 134 cm/s VTI, S 41.9 cm Mean gradient, S 8 mm Hg Peak gradient, S 13 mm Hg Valve area, VTI 1.48 cm^2 Valve area, Vmax 1.52 cm^2 Tricuspid valve Regurgitant peak velocity 389 cm/s Peak RV-RA gradient, S 61 mm Hg Systemic veins Estimated CVP 10 mm Hg Right ventricle RV pressure, S *71 mm Hg <30 LEGEND: Mean values are shown as u=mean value. Asterisk (*) gonzales values outside specified normal range. Prepared and signed by Vicente Joy [id number]
[2016-06-08] VITALS (34 sets, daily range): BP systolic 156–185; BP diastolic 66–91; PULSE 70–109; RESP 26–30; TEMP 97.5–97.9; O2SAT 91–98
[2016-06-08] MEDS: INSULIN ASPART SUPPLEMENTAL SCALE SQ SCH ×4 (06:32→21:14)
[2016-06-08] MEDS: RESP: ALBUTEROL 2.5 MG/IPRATROPIUM 0.5 MG NEB (SCH) NEB ×4 (07:47→20:06)
[2016-06-08] MEDS: FUROSEMIDE 40 MG/4 ML VIAL IV PUSH SCH ×2 (08:31→17:51)
[2016-06-08] MEDS: SODIUM CHLORIDE 0.9% FLUSH 5 ML FLUSH FLUSH SCH ×2 (08:31→21:12)
[2016-06-08] MEDS: guaiFENesin E.R. 600 MG TAB PO SCH (08:32)
[2016-06-08] MEDS: predniSONE 20 MG TAB PO SCH (08:32)
[2016-06-08] MEDS: ASPIRIN EC 81 MG TABEC PO SCH (08:32)
[2016-06-08] MEDS: HEPARIN SODIUM - SQ 10,000 UNITS/ML VIAL SQ SCH ×2 (08:32→21:14)
[2016-06-08] MEDS: PANTOPRAZOLE SOD 40 MG DELAYED RELEASE TAB PO SCH (08:32)
[2016-06-08] MEDS: LEVOFLOXACIN 500 MG TAB PO SCH (08:32)
[2016-06-08] MEDS: amLODIPine BESYLATE 5 MG TAB PO SCH (08:32)
[2016-06-08] MEDS: hydrALAZINE HCL 20 MG/ML VIAL IV PUSH PRN ×2 (09:31→17:52)
--- NOTE | 2016-06-08 09:47 | HHI.PR ---
Subjective Remarks Follow up for acute respiratory failure, probable pneumonia. Patient is still having trouble with her breathing. Currently on 2 L of oxygen via nasal cannula. She denies any chest pain, fever or chills. Objective Vitals Vital Signs Date Time Temp Pulse Resp B/P Pulse Ox O2 Delivery O2 Flow Rate FiO2 06/08/16 07:47 95 Nasal Cannula 3.00 06/08/16 07:00 70 06/08/16 06:00 78 06/08/16 05:00 73 06/08/16 04:00 71 06/08/16 03:00 71 06/08/16 03:00 96 Nasal Cannula 3.00 06/08/16 03:00 97.8 71 30 165/66 96 06/08/16 02:00 70 06/08/16 01:30 98 40 06/08/16 01:00 109 06/08/16 00:00 75 06/07/16 23:00 99 Bi-Pap 40 06/07/16 23:00 97.3 74 32 163/78 99 06/07/16 23:00 74 06/07/16 22:45 95 40 06/07/16 22:00 90 06/07/16 21:00 91 06/07/16 20:00 93 Nasal Cannula 3.00 06/07/16 20:00 93 06/07/16 20:00 97.6 78 24 169/78 93 06/07/16 19:28 93 Nasal Cannula 3.00 06/07/16 19:00 89 06/07/16 18:03 97 06/07/16 17:02 87 06/07/16 16:16 83 06/07/16 15:15 91 06/07/16 15:15 98.2 91 22 165/74 91 06/07/16 14:02 82 06/07/16 13:01 80 06/07/16 12:31 74 06/07/16 11:42 97.7 80 24 171/81 94 06/07/16 11:42 80 06/07/16 10:01 75 I/O 06/07/16 06/07/16 06/07/16 06/08/16 06/08/16 06/08/16 07:00 15:00 23:00 07:00 15:00 23:00 Intake Total 240 ml 1420 ml 600 ml Output Total 700 ml 1200 ml 1675 ml Balance -460 ml 220 ml -1075 ml Intake Oral 240 ml 720 ml 600 ml IV Total 700 ml Output Urine Total 700 ml 1200 ml 1675 ml # Bowel Movements 1 1 Result Diagram: 06/07/16 0538 06/08/16 0316 Imaging Last Impressions Chest X-Ray 06/05/161957 Signed Impressions: Service Date/Time: Sunday, June 05, 2016 20:17 - CONCLUSION: CHF Juvenal Roberts MD Objective Remarks GENERAL: AOX3, NAD. SKIN: Warm and dry. HEAD: Normocephalic. EYES: No scleral icterus. No injection or drainage. NECK: Supple, trachea midline. No JVD or lymphadenopathy. CARDIOVASCULAR: Regular rate and rhythm without murmurs, gallops, or rubs. RESPIRATORY: Moderate air entry. No wheezing. Mild bibasilar crackles GASTROINTESTINAL: Abdomen soft, non-tender, nondistended. MUSCULOSKELETAL: No cyanosis. 1+ edema. BACK: Nontender without obvious deformity. No CVA tenderness. Procedures Echo 06/07/2016 - Left ventricle: The cavity size was normal. Wall thickness was increased in a pattern of mild LVH. Systolic function was normal. The estimated ejection fraction was in the range of 50% to 55%. - Aortic valve: Valve area: 1.48cm^2(VTI). Valve area: 1.52cm^2 (Vmax). - Mitral valve: Moderately calcified annulus. Mild regurgitation. - Left atrium: The atrium was mildly dilated. - Tricuspid valve: Mild regurgitation. - Pulmonary arteries: PA peak pressure: 71mm Hg (S). A/P Problem List: (1) Sepsis ICD Code: A41.9 Status: Acute (2) Acute respiratory failure ICD Code: J96.00 Status: Acute (3) Hypoxia ICD Code: R09.02 Status: Acute (4) CHF (congestive heart failure) ICD Code: I50.9 Status: Chronic (5) Renal insufficiency ICD Code: N28.9 Status: Acute (6) DM (diabetes mellitus) ICD Code: E11.9 Status: Chronic Assessment and Plan Ms. Gutierrez is a pleasant 81 year old female with a history of HTN, COPD, CHF ( unknown EF), Hyperlipidemia and DM was brought to the ER by EMS secondary to SOB for 2 days prior to this admission on 06/05/2016. Upon EMS arrival, pt noted to have O2 sat 75% on RA and placed on CPAP, s/p Lasix 100mg IV en route and given DuoNeb w/ some improvement. On arrival, BP 145/85, HR 83, RR 40, O2 sat 99% on BiPAP w/ 50% FiO2, Temp 101.0. WBC normal however elevated neutrophil count. Vanc/Zosyn given in the ED. - Acute respiratory failure - Patient now stable on 2 L nasal cannula, weaned off BiPAP. - Likely secondary to COPD and CHF. - Reviewed CXR from 06/05/2016 shows patchy opacities consistent with CHF. - Will get another CXR today. - Sepsis: On admission patient febrile with left shift. - Presumed pneumonia, Switched from cefepime and vanc to Levaquin - Lactic acid has trended down from 2.6 to 1.1. - Continue Prednisone 40mg Qday. - Continue DuoNeb treatments. - Walk test today. - CHF: No previous records as patient is from [place], plans to go back on August 16. - EF 50-55%. - Continue aspirin 81 mg, furosemide 40 mg IV twice a day -Acute kidney injury: Gentle hydration. Avoid nephrotoxic agents -COPD: Continue Symbicort, DuoNeb nebs as above. Patient does not have oxygen requirement at home. -Diabetes mellitus: Low-dose sliding scale insulin Full code. Heparin SQ. Problem Qualifiers (1) Acute respiratory failure: Qualified Code: J96.01 - Acute respiratory failure with hypoxia Homer Helms DO Jun 08, 2016 9:47 am
--- NOTE | 2016-06-08 10:19 | RADRPT ---
EXAM DATE/TIME: 06/08/2016 09:47 [facility] COMPARISON: CHEST SINGLE AP, June 05, 2016, 20:17. INDICATIONS : Difficulty breathing. MEDICAL HISTORY : Congestive heart failure. SURGICAL HISTORY : None. ENCOUNTER: Subsequent ACUITY: 2 days PAIN SCORE: 3/10 LOCATION: Bilateral chest FINDINGS: AP upright portable view of the chest demonstrates improved aeration of the lungs with clearing of th e left lower lung airspace consolidation. The heart size is moderately enlarged. Pulmonary vasculatur e demonstrates cephalization, improved from prior. CONCLUSION: Overall improved exam with clearing of the left lung base. Stable heart irregularly and cephalization of pulmonary vasculature consistent with congestive heart failure.. Riana Bearden MD on June 08, 2016 at 10:17 Board Certified Radiologist. This report was verified electronically.
[2016-06-08] MEDS: BUDESONIDE-FORMOTEROL 160/4.5 MCG INHALER INH SCH ×2 (11:13→21:13)
[2016-06-08] MEDS ORDERED: PHARMACY ORDERED LAB XX ONE ×2 (12:45→19:45)
[2016-06-08] MEDS ORDERED: guaiFENesin/DEXTROMETHORPHAN 200 MG/20 MG/10 ML CUP PO PRN (18:00)
[2016-06-08] MEDS: INSULIN ASPART 1,000 UNITS/10 ML VIAL SQ SCH (18:07)
[2016-06-08] MEDS ORDERED: INSULIN DETEMIR 100 UNITS/ML VIAL SQ SCH (21:00)
[2016-06-08] MEDS ORDERED: hydrALAZINE HCL 20 MG/ML VIAL IV PUSH ONE (21:00)
[2016-06-09] VITALS (25 sets, daily range): BP systolic 160–175; BP diastolic 72–92; PULSE 72–102; RESP 28–30; TEMP 97.6–98; O2SAT 92–98
[2016-06-09] MEDS: INSULIN ASPART SUPPLEMENTAL SCALE SQ SCH ×3 (06:14→16:51)
[2016-06-09] MEDS: BUDESONIDE-FORMOTEROL 160/4.5 MCG INHALER INH SCH (07:56)
[2016-06-09] MEDS: ASPIRIN EC 81 MG TABEC PO SCH (07:56)
[2016-06-09] MEDS: amLODIPine BESYLATE 5 MG TAB PO SCH (07:56)
[2016-06-09] MEDS: INSULIN ASPART 1,000 UNITS/10 ML VIAL SQ SCH ×3 (07:57→17:13)
[2016-06-09] MEDS: FUROSEMIDE 40 MG/4 ML VIAL IV PUSH SCH ×2 (07:57→18:00)
[2016-06-09] MEDS: HEPARIN SODIUM - SQ 10,000 UNITS/ML VIAL SQ SCH (07:57)
[2016-06-09] MEDS: SODIUM CHLORIDE 0.9% FLUSH 5 ML FLUSH FLUSH SCH (07:57)
[2016-06-09] MEDS: PANTOPRAZOLE SOD 40 MG DELAYED RELEASE TAB PO SCH (08:00)
[2016-06-09] MEDS: LEVOFLOXACIN 500 MG TAB PO SCH (08:00)
[2016-06-09] MEDS: predniSONE 20 MG TAB PO SCH (08:00)
[2016-06-09] MEDS: RESP: ALBUTEROL 2.5 MG/IPRATROPIUM 0.5 MG NEB (SCH) NEB ×4 (08:53→18:56)
[2016-06-09] MEDS: hydrALAZINE HCL 20 MG/ML VIAL IV PUSH PRN ×2 (10:19→17:13)
[2016-06-09] MEDS ORDERED: OXYGENTANK NAS.CANULA (14:46)
[2016-06-09] MEDS ORDERED: AMLO5TAB2 PO (14:46)
--- NOTE | 2016-06-09 14:48 | HHI.DS ---
Discharge Summary Admission Date Jun 05, 2016 at 9:24 pm Discharge Date: Jun 09, 2016 Admitting Diagnosis CHF Exacerbation - BIPAP Dependent with Sepsis (1) Sepsis ICD Code: A41.9 (2) Acute respiratory failure ICD Code: J96.00 Diagnosis: Principal (3) Hypoxia ICD Code: R09.02 Diagnosis: Principal (4) CHF (congestive heart failure) ICD Code: I50.9 Diagnosis: Principal (5) Renal insufficiency ICD Code: N28.9 (6) DM (diabetes mellitus) ICD Code: E11.9 Procedures Echo 06/07/2016 - Left ventricle: The cavity size was normal. Wall thickness was increased in a pattern of mild LVH. Systolic function was normal. The estimated ejection fraction was in the range of 50% to 55%. - Aortic valve: Valve area: 1.48cm^2(VTI). Valve area: 1.52cm^2 (Vmax). - Mitral valve: Moderately calcified annulus. Mild regurgitation. - Left atrium: The atrium was mildly dilated. - Tricuspid valve: Mild regurgitation. - Pulmonary arteries: PA peak pressure: 71mm Hg (S). Brief History - From Admission This is an 81-year-old female with a PMH of HTN, COPD, CHF (unknown EF), Hyperlipidemia and DM was brought to the ER by EMS secondary to SOB x2 days. Reports associated productive cough w/ yellow-colored sputum and sick contact- sister has similar symptoms. Denies fever, chills or chest pain. Upon EMS arrival, pt noted to have O2 sat 75% on RA and placed on CPAP, s/p Lasix 100mg IV en route and given DuoNeb w/ some improvement. On arrival, BP 145/85, HR 83 , RR 40, O2 sat 99% on BiPAP w/ 50% FiO2, Temp 101.0. WBC normal however elevated neutrophil count. Creatinine 1.46, no previous labs for comparison. Bacid 2.6. CPK 340, BNP 694. UA negative. CXR with CHF. S/p Blood Cultures, Vanc/Zosyn in ER. Pt remains on BIPAP, now weaned to 40% FIO2. CBC/BMP: 06/07/16 0538 06/08/16 0316 Significant Findings Laboratory Tests Test 06/07/16 06/08/16 05:38 03:16 Red Blood Count 3.48 MIL/MM3 (4.00-5.30) Hemoglobin 9.6 GM/DL (11.6-15.3) Hematocrit 28.9 % (35.0-46.0) Neutrophils (%) (Auto) 81.8 % (16.0-70.0) Lymphocytes (%) (Auto) 8.4 % (9.0-44.0) Monocytes (%) (Auto) 9.5 % (0.0-8.0) Lymphocytes # (Auto) 0.8 TH/MM3 (1.0-4.8) Blood Urea Nitrogen 46 MG/DL (7-18) Creatinine 1.43 MG/DL 1.30 MG/DL (0.50-1.00) (0.50-1.00) Estimat Glomerular Filtration 35 ML/MIN (>89) 39 ML/MIN (>89) Rate Random Glucose 272 MG/DL (74-106) Calcium Level 7.9 MG/DL (8.5-10.1) Imaging Last Impressions Chest X-Ray 06/08/16 0000 Signed Impressions: Service Date/Time: Wednesday, June 08, 2016 09:47 - CONCLUSION: Overall improved exam with clearing of the left lung base. Stable heart irregularly and cephalization of pulmonary vasculature consistent with congestive heart failure.. Riana Bearden MD PE at Discharge GENERAL: AOX3, NAD. SKIN: Warm and dry. HEAD: Normocephalic. EYES: No scleral icterus. No injection or drainage. NECK: Supple, trachea midline. No JVD or lymphadenopathy. CARDIOVASCULAR: Regular rate and rhythm without murmurs, gallops, or rubs. RESPIRATORY: Moderate air entry. No wheezing. Mild bibasilar crackles GASTROINTESTINAL: Abdomen soft, non-tender, nondistended. MUSCULOSKELETAL: No cyanosis. 1+ edema. BACK: Nontender without obvious deformity. No CVA tenderness. Pt update on day of discharge Ms. Gutierrez is doing well. No acute concerns. She is sitting in her chair. Denies any CP, fever, chills. Currently on 3L of O2 via NC. Has CPAP at home. Hospital Course Ms. Gutierrez is a pleasant 81 year old female with a history of HTN, COPD, CHF ( unknown EF), Hyperlipidemia and DM was brought to the ER by EMS secondary to SOB for 2 days prior to this admission on 06/05/2016. Upon EMS arrival, pt noted to have O2 sat 75% on RA and placed on CPAP, s/p Lasix 100mg IV en route and given DuoNeb w/ some improvement. On arrival, BP 145/85, HR 83, RR 40, O2 sat 99% on BiPAP w/ 50% FiO2, Temp 101.0. WBC normal however elevated neutrophil count. Vanc/Zosyn given in the ED. - Acute respiratory failure - Patient now stable on 2 L nasal cannula, weaned off BiPAP. - Likely secondary to COPD and CHF. - Reviewed CXR from 06/05/2016 shows patchy opacities consistent with CHF. - Walk test --> needs 3L of O2 via NC continuously. - Sepsis: On admission patient febrile with left shift. - Presumed pneumonia, Switched from cefepime and vanc to Levaquin - Lactic acid has trended down from 2.6 to 1.1. - Continue Prednisone 40mg Qday while in the hospital. Dosepak when discharged. - Continue DuoNeb treatments. - CHF: No previous records as patient is from [place], plans to go back on August 16. - EF 50-55%. - Continue aspirin 81 mg, furosemide 40 mg IV twice a day - PO Lasix on discharge. -Acute kidney injury: Gentle hydration. Avoid nephrotoxic agents -COPD: Continue Symbicort, DuoNeb nebs as above. Patient does not have oxygen requirement at home. -Diabetes mellitus: Low-dose sliding scale insulin Pt Condition on Discharge: Good Discharge Disposition: Discharge Home Discharge Time: > 30 minutes Discharge Instructions DIET: Follow Instructions for: Heart Healthy Diet Activities you can perform: Regular-No Restrictions Follow up Referrals: PCP Follow-up - 1 Week New Medications: Albuterol 18 GM Inh (Ventolin Hfa 18 GM Inh) 90 Mcg/Act Aer 2 PUFF INH Q4-6H PRN SHORTNESS OF BREATH #1 Ref 0 INHALER Levofloxacin (Levaquin) 750 Mg Tab 750 MG PO DAILY Infection #5 Ref 0 TAB Oxygen tank (Oxygen tank) 1 Ea Tank 2 LITER SCAR.[id number] CONTINUOUS Oxygen Concentrator Portable Gaseous 3 L/min via Nasal Cannula Continuous For 99 months HYPOXEMIA PREVENTION #1 CYLINDER Budesonide-Formoterol Inh (Symbicort Inh) 160-4.5 Mcg/Act Aero 1 PUFF INH Q12HR Breathing difficulty Days 30 INHALER Changed Medications: Amlodipine (Amlodipine) 5 Mg Tab 10 MG PO DAILY Blood Pressure Management #30 Ref 0 TAB (Changed from: 5 MG) Continued Medications: Aspirin DR (Aspirin 81) 81 Mg Tabdr 81 MG PO DAILY Ref 0 TAB Clobetasol Topical (Clobetasol Topical) 0.05% Cream 1 APPLIC TOPICAL BID #30 Ref 0 GM Furosemide (Furosemide) 40 Mg Tab 40 MG PO DAILY #30 Ref 0 TAB Levothyroxine (Levothyroxine) 25 Mcg Tab 0.15 MG PO DAILY Thyroid #30 Ref 0 TAB Magnesium Oxide (Magnesium Oxide) 500 Mg Tab 835 MG PO DAILY Ref 0 TAB Metformin (Metformin) 500 Mg Tab 500 MG PO DAILY With a meal Blood Sugar Management #30 Ref 0 TAB Pantoprazole (Protonix) 40 Mg Tab 40 MG PO DAILY Reflux #30 Ref 0 TAB Perindopril (Perindopril) 8 Mg Tab 8 MG PO DAILY TAB Sitagliptin (Januvia) 100 Mg Tab 100 MG PO DAILY Blood Sugar Management #30 Ref 0 TAB Terazosin (Terazosin) 2 Mg Cap 2 MG PO HS #30 Ref 0 CAP Homer Helms DO Jun 09, 2016 14:48
[2016-06-09] MEDS ORDERED: SYMB160A INH (14:52)
[2016-06-09] MEDS ORDERED: LEVA750T PO (14:52)
[2016-06-09] MEDS ORDERED: VENTAER INH (14:52)
== END 2016-06-09 19:06 | disposition home or self-care (01) | DRG 871 ==
LOC: NEPE 19:46 → NEDA 21:24 → HCIN 06-06 00:50
PROVIDERS: ADMIT Hospitalist; ATTEND Hospitalist
PROC: 5A09457 Assistance with Respiratory Ventilation, 24-96 Consecutive Hours, Continuous Positive Airway Pressure (ICD-10-PCS; principal; 2016-06-06)
DX: A41.9 Sepsis, unspecified organism (principal); J96.01 Acute respiratory failure with hypoxia; J18.9 Pneumonia, unspecified organism; N17.9 Acute kidney failure, unspecified; J44.1 Chronic obstructive pulmonary disease with (acute) exacerbation; I50.9 Heart failure, unspecified; E11.9 Type 2 diabetes mellitus without complications; Z79.84 Long term (current) use of oral hypoglycemic drugs; I10 Essential (primary) hypertension; E78.5 Hyperlipidemia, unspecified; I08.1 Rheumatic disorders of both mitral and tricuspid valves
CPT/HCPCS: 36600; 51702; 71010; 80048; 80053; 81001; 82550; 82552; 82565; 82805; 82948; 83605; 83735; 83880; 84484; 85025; 85610; 85730; 87040; 93005; 93306; 94002; 94003; 94620; 94640; 94664; 96365; 96368; J0360; J0692; J1644; J1815; J1940; J2543; J3370; J7030; J7040; J7050; J7512